=== PATIENT | female | born 1995 | race Caucasian/White ===

== ENCOUNTER 2025-07-25 10:19 | Emergency (ER) | payer MEDICAID ==
[~2025-07-25] VITALS: Ht 152.4 cm; Wt 77.0 kg
[2025-07-25 10:42] VITALS: O2SAT 100
[2025-07-25 12:16] LABS: BASOPHILS % 0.6 % (0.0-2.0); EOSINOPHILS % 2.8 % (0.0-5.0); HEMATOCRIT. 40.1 % (36.0-48.0); HEMOGLOBIN. 13.4 g/dL (12.0-16.0); LYMPHOCYTES % 39.7 % (20.0-50.0); MEAN PLATELET VOLUME 8.7 fl (7.4-10.4); MONOCYTES % 9.3 % (2.0-8.0); NEUTROPHILS % 47.6 % (40.0-76.0); PLATELET 252 x1000/uL (130-400); RED BLOOD CELL COUNT 4.44 mill/uL (4.2-5.4); RED CELL DISTRIBUTION WIDTH 12.5 % (11.6-14.6)
[2025-07-25 12:32] LABS: CREATININE 0.7 mg/dL (0.6-1.0); UREA NITROGEN BLOOD 7 mg/dL (9-23)
[2025-07-25 14:15] LABS: PROTEIN TOTAL 8.0 g/dL (6.0-8.3)
[2025-07-25] MEDS ORDERED: ONDANSETRON 4MG ODT PO ONE (14:15)
[2025-07-25] MEDS ORDERED: IBUPROFEN 800MG TABLET PO ONE (14:15)
[2025-07-25 14:16] LABS: ASPARTATE AMINOTRANSFERASE 34 IU/L (<34); BILIRUBIN DIRECT 0.2 mg/dL (<=3.0)
[2025-07-25 14:17] LABS: BILIRUBIN TOTAL 0.7 mg/dL (0.1-1.0)
[2025-07-25 15:54] LABS: HCG SCREEN NEGATIVE
[2025-07-25] MEDS: LOPERAMIDE 2MG/15ML UDC PO ONE (18:36)
[2025-07-25] MEDS: ONDANSETRON 4MG ODT PO NR (18:36)
[2025-07-25] MEDS: IBUPROFEN 800MG TABLET PO NR (18:36)
[2025-07-25 19:14] LABS: CLARITY URINE CLEAR (CLEAR); COLOR URINE YELLOW (YELLOW); GLUCOSE URINE NEGATIVE (NEGATIVE); KETONES URINE 1+ (NEGATIVE); LEUKOCYTE ESTERASE URINE NEGATIVE (NEGATIVE); NITRITE URINE NEGATIVE (NEGATIVE); OCCULT BLOOD URINE 2+ (NEGATIVE); PH URINE 6.0 (4.5-8.0); PROTEIN URINE 2+ (NEGATIVE); SPECIFIC GRAVITY URINE 1.022 (1.005-1.030); UROBILINOGEN URINE 1.0 E.U./dL (0.2-1.0)
[2025-07-25] MEDS ORDERED: PROT40 MT (19:41)
[2025-07-25 19:54] VITALS: BP 125/80; PULSE 68; RESP 16; TEMP 37.2; O2SAT 99
[2025-07-25 20:08] LABS: BACTERIA URINE TRACE; SQUAMOUS EPITHELIAL CELL URINE RARE /lpf (RARE/1+); WBC URINE 0-2 /hpf (0-2)
== END 2025-07-25 19:58 | disposition home or self-care (01) ==
LOC: ER 10:19
DX: K52.9 Noninfective gastroenteritis and colitis, unspecified (principal)
CPT/HCPCS: 99284; 74176; 80076; 80048; 81003; 84703; 83690; 85025; 36415; Q0162